=== PATIENT | female | born 1985 | race African-American/Black ===

== ENCOUNTER 2018-06-08 15:07 | Emergency (ER) | payer OTHER ==
[~2018-06-08] VITALS: Ht 172.7 cm; Wt 81.6 kg
[~2018-06-08 15:07] MED LIST: PRENATAL; PROAIR; [UNRECOGNIZED DRUG - OTHER]
[2018-06-08] MEDS ORDERED: HYDROcodone-ACET 5/325MG TAB PO ONE (19:00)
[2018-06-08 20:27] VITALS: BP 125/87
== END 2018-06-08 20:27 | disposition home or self-care (01) ==
LOC: EDBD 15:07 → ER 15:07
DX: S16.1XXA Strain of muscle, fascia and tendon at neck level, initial encounter (principal); R51 Headache; J45.909 Unspecified asthma, uncomplicated; V49.9XXA Car occupant (driver) (passenger) injured in unspecified traffic accident, initial encounter; Y93.89 Activity, other specified; Y99.8 Other external cause status; Y92.89 Other specified places as the place of occurrence of the external cause
CPT/HCPCS: 70450; 72125